=== PATIENT | male | born 1960 | race Caucasian/White ===

== ENCOUNTER 2019-03-26 16:37 | Emergency (ER) | payer MEDICAID ==
[~2019-03-26] VITALS: Ht 167.6 cm; Wt 63.0 kg
[2019-03-26] MEDS ORDERED: KETOROLAC 60MG/2ML VIAL IM ONE (19:00)
[2019-03-26] MEDS ORDERED: HYDROCODONE/ACETAMINOPHEN 5/325MG TABLET PO ONE (19:00)
[2019-03-26] MEDS ORDERED: CEFTRIAXONE SODIUM 250 MG/VIAL IM ONE (19:00)
[2019-03-26] MEDS ORDERED: TETANUS, DIPHTHERIA, PERTUSSIS VAC/PF 0.5ML (>7YR OLD) IM ONE (19:15)
[2019-03-26] MEDS ORDERED: LIDOCAINE HCL/PF 1% 10 MG/ML 5ML VIAL IJ ONE (19:15)
[2019-03-26] MEDS ORDERED: BACITRACIN ZINC OINT UDPKT TOP ONE (19:15)
[2019-03-26] MEDS ORDERED: BACITRACIN 15GM TUBE TOP NR (19:45)
[2019-03-26 19:58] VITALS: BP 124/67
== END 2019-03-26 19:59 | disposition home or self-care (01) ==
LOC: ER 16:47
DX: S61.211A Laceration without foreign body of left index finger without damage to nail, initial encounter (principal); Z90.49 Acquired absence of other specified parts of digestive tract; W25.XXXA Contact with sharp glass, initial encounter; Y93.89 Activity, other specified; Y92.89 Other specified places as the place of occurrence of the external cause; Y99.8 Other external cause status
CPT/HCPCS: 12001; 73140; 90471; 90715; 96372; 99283; J0696; J1885; J3490

== ENCOUNTER 2024-11-27 10:49 | Emergency (ER) | payer MEDICAID, OTHER ==
[~2024-11-27] VITALS: Ht 162.6 cm; Wt 62.0 kg
[2024-11-27 11:10] VITALS: O2SAT 100
[2024-11-27] MEDS ORDERED: OCUFLX RIGHTEYE (15:17)
[2024-11-27 15:32] VITALS: BP 157/76; PULSE 63; RESP 14; TEMP 36.6; O2SAT 100
== END 2024-11-27 15:32 | disposition home or self-care (01) ==
LOC: ER 10:49
DX: H10.9 Unspecified conjunctivitis (principal); Z90.49 Acquired absence of other specified parts of digestive tract
CPT/HCPCS: 99283